=== PATIENT | male | born 1940 | race Caucasian/White ===

== ENCOUNTER 2017-03-24 08:15 | Inpatient (IN) | payer OTHER ==
[2017-03-24] MEDS ORDERED: XANAX XR0.5 MG PO (09:57)
[2017-03-24] MEDS ORDERED: COZAAR50 MG PO (09:57)
[2017-03-24] MEDS ORDERED: PRILOSEC OTC20 MG PO (09:57)
[2017-03-24] MEDS ORDERED: LIPIT PO (09:58)
[2017-03-24] MEDS ORDERED: [UNRECOGNIZED DRUG - OTHER] PO (09:58)
[2017-03-24] MEDS ORDERED: ASPIR 8181 MG PO (09:59)
[2017-03-24] MEDS ORDERED: TRETAL PO (09:59)
[2017-04-02] MEDS ORDERED: ASA-EC81 MG PO (11:18)
[2017-04-02] MEDS ORDERED: PENTOXIFYLLINE400 MG PO (11:18)
[2017-04-03] MEDS ORDERED: DUI500 PO (17:03)
[2017-04-03] MEDS ORDERED: PERCOCET 5-3251 EACH PO (17:03)
[2017-04-03] MEDS ORDERED: XARELTO10 MG PO (17:03)
== END 2017-04-03 19:08 | disposition home health service (06) | DRG 470 ==
LOC: SURG 04-01 05:52 → O/R 04-01 05:52 → SURH 04-01 07:00 → SURG 04-01 10:24
PROVIDERS: Orthopaedic Surgery
PROC: 0SRD0J9 Replacement of Left Knee Joint with Synthetic Substitute, Cemented, Open Approach (ICD-10-PCS; principal; 2017-04-01 07:00)
DX: M17.12 Unilateral primary osteoarthritis, left knee (principal); D62 Acute posthemorrhagic anemia; I10 Essential (primary) hypertension; F10.20 Alcohol dependence, uncomplicated